=== PATIENT | female | born 1985 | race Caucasian/White ===

== ENCOUNTER 2017-10-01 14:12 | Emergency (ER) | payer BC ==
[2017-10-01] MEDS ORDERED: Lorazepam 2 MG/ML VIAL ONE (14:51)
== END 2017-10-01 15:31 | disposition home or self-care (01) ==
LOC: MADERS 14:12
DX: F41.9 Anxiety disorder, unspecified (principal); F90.9 Attention-deficit hyperactivity disorder, unspecified type; F17.290 Nicotine dependence, other tobacco product, uncomplicated; I47.1 Supraventricular tachycardia
CPT/HCPCS: 93005; 96372; J2060